=== PATIENT | female | born 1955 | race Caucasian/White ===

== ENCOUNTER 2024-06-11 22:29 | Emergency (ER) | payer MEDICARE ==
[2024-06-11 22:53] VITALS: RESP 18; TEMP 98.5
--- NOTE | 2024-06-11 22:57 | ERPHSYRPT ---
- History of Present Illness Time Seen by Provider: 06/11/24 22:56 Source: patient Exam Limitations: no limitations Patient Subjective Stated Complaint: pt states that she is positive for the flu 10 days ago and still does not feel good Triage Nursing Assessment: pt came into the er via ambulance; pt was transfer to cot per ems staff; pt is axo x3; pt is refusing to answer health history, allergies, medication; skin PDW; no respiratory distress present; clear lung sounds in all lobes; denies N/V/D; hypertensive Physician History: The patient, with diabetes and chronic kidney disease, presents with prolonged weakness and flu-like symptoms. They have been experiencing prolonged weakness and flu-like symptoms, initially diagnosed with Influenza A on June 03, 2024. They describe feeling weak for the past week with difficulty standing, describing themselves as 'shaky, weak, can't stand up'. They feel short of breath and have a cough, which was particularly bad today. No recent antibiotic use or breathing treatments. Additional symptoms include headache, inability to eat, and difficulty drinking. They have experienced falls on multiple occasions but do not recall specific details about these incidents. They have a history of diabetes and chronic kidney disease. No history of heart stents or open-heart surgery. They report a little chest pain but no swelling in their legs. Timing/Duration: day(s) (10), gradual onset, worse Cough Quality/Degree: mild, dry cough Possible Cause: occasional episodes Modifying Factors: Improves With: nothing. Worsens With: activity Associated Symptoms: cough, muscle aches, shortness of breath, wheezing, No fever, No chills Allergies/Adverse Reactions: bupivacaine Allergy (Verified 06/11/24 23:30) Iodinated Contrast Media Allergy (Verified 06/11/24 23:30) levofloxacin [From Levaquin] Allergy (Verified 06/11/24 23:30) shellfish derived Allergy (Verified 06/11/24 23:30) sitagliptin [From Januvia] Allergy (Verified 06/11/24 23:30) Sulfa (Sulfonamide Antibiotics) Allergy (Verified 06/11/24 23:30) sulfamethoxazole [From Bactrim] Allergy (Verified 06/11/24 23:30) trimethoprim [From Bactrim] Allergy (Verified 06/11/24 23:30) Home Medications: ALPRAZolam 0.25 MG [xanAX 0.25 MG] 0.25 mg PO BID PRN 06/11/24 [History] ARIPiprazole [Aripiprazole] 5 mg PO DAILY 06/11/24 [History] Aspirin EC 81 mg [Ecotrin 81 mg] 81 mg PO DAILY 06/11/24 [History] Fluoxetine HCl 40 mg PO DAILY 06/11/24 [History] Gabapentin [Neurontin ] 800 mg PO TID 06/11/24 [History] Hydrocodone/Acetaminophen [Hydrocodone-Acetamin 7.5-325] 1 each PO Q6HPRN PRN 06/11/24 [History] Insulin Glargine [Lantus Insulin] 60 unit SQ DAILY 06/11/24 [History] Insulin Lispro [Humalog] 30 unit SQ TID 06/11/24 [History] Levothyroxine Sodium 100 Mcg [Synthroid 100 Mcg] 100 mcg PO DAILY 06/11/24 [History] modafiniL [Modafinil] 200 mg PO DAILY 06/11/24 [History] Hx Tetanus, Diphtheria Vaccination/Date Given: No Hx Influenza Vaccination/Date Given: No Hx Pneumococcal Vaccination/Date Given: No Travel Risk - International Travel Have you traveled outside of the country in past 3 weeks: No - Emerging Infectious Disease Are you exhibiting symptoms associated with any current EIDs: No - Review of Systems All Other Systems: Reviewed and Negative - Past Medical History Pertinent Past Medical History: No (unable to obtain) - Past Surgical History Musculoskeletal: Amputation Other Surgical History: left great toe amputation, pain pump - Social History Smoking Status: Never smoker Exposure to second hand smoke: No Drug Use: none - Social Determinants of Health Will the patient participate in the screening: Declined to provide - Nursing Vital Signs Nursing Vital Signs: Initial Vital Signs Pulse Rate 85 06/11/24 22:33 Blood Pressure 209/97 06/11/24 22:33 O2 Sat by Pulse Oximetry 100 06/11/24 22:33 Pain Scale Pain Intensity 8 - Physical Exam General Appearance: no apparent distress, obese Neck Exam: supple, full range of motion Respiratory Exam: airway intact, diminished breath sounds, wheezing, No res piratory distress Cardiovascular Exam: regular rate/rhythm, normal heart sounds, capillary refill <2 sec, No edema Extremity Exam: normal inspection, normal range of motion Neurologic Exam: alert, oriented x 3, cooperative, interface designer II-XII nml as tested, sensation nml, No motor deficits Skin Exam: normal color, warm, dry, No rash SpO2 Interpretation: normal SpO2: 98 O2 Delivery: Room Air - Course Nursing assessment & vital signs reviewed: Yes - Radiology Exams Chest X-ray Interpretation: Interpreted by me, Infiltrates (bilateral ground glass) Ordered Tests: Active Orders 24 hr Category Date Time Status CHEST 1 VIEW (PORTABLE) Stat Exams 06/11/24 22:57 Taken CBC W DIFF Stat Lab 06/11/24 23:23 Completed CMP Stat Lab 06/11/24 23:23 Completed CULTURE,URINE Stat Lab 06/11/24 23:00 Received Lactic Acid Stat Lab 06/11/24 22:30 Completed MAGNESIUM Stat Lab 06/11/24 23:23 Completed NT PRO BNPII Stat Lab 06/11/24 23:23 Completed PROCALCITONIN Stat Lab 06/11/24 23:23 Completed UA W/RFX UR CULTURE Stat Lab 06/11/24 23:00 Completed Respiratory Therapy Assessment DAILY RT 06/11/24 23:36 Active Medication Summary Discontinued Medications Generic Name Dose Route Start Last Admin Trade Name Freq PRN Reason Stop Dose Admin Albuterol/Ipratropium 3 ml 06/11/24 22:56 06/11/24 23:36 Ipratropium/Albuterol Sulfate 3 Ml Ampul.Neb IH 06/11/24 22:57 3 ml STAT ONE Administration Albuterol/Ipratropium Confirm 06/11/24 23:21 Ipratropium/Albuterol Sulfate 3 Ml Ampul.Neb Administered 06/11/24 23:22 Dose 3 ml IH .STK-MED ONE Lab/Rad Data: Laboratory Result Diagrams 06/11/24 23:23 06/11/24 23:23 Laboratory Results 06/11/24 06/11/24 06/11/24 Range/Units 23:23 23:23 23:23 WBC (3.98-10.04) x10^3/uL RBC (3.93-5.22) x10^6/uL Hgb (11.2-15.7) g/dL Hct (34.1-44.9) % MCV (79.4-94.8) fL MCH (25.6-32.2) pg MCHC (32.2-35.5) g/dL RDW (11.7-14.4) % Plt Count (182-369) x10^3/uL MPV (9.4-12.3) fL Gran % (34.0-71.1) % Immature Gran % (Auto) (0.001-0.429) % Nucleat RBC Rel Count (0.00-0.2) % Eos # (Auto) (0.04-0.36) x10^3/uL Immature Gran # (Auto) (0.001-0.031) x10^3u/L Absolute Lymphs (auto) (1.18-3.74) x10^3/uL Absolute Monos (auto) (0.24-0.86) x10^3/uL Absolute Nucleated RBC (0.00-0.012) x10^3u/L Lymphocytes % (19.3-51.7) % Monocytes % (4.7-12.5) % Eosinophils % (0.7-5.8) % Basophils % (0.1-1.2) % Absolute Granulocytes (1.56-6.13) x10^3/uL Basophils # (0.01-0.08) x10^3/uL Sodium (135-145) mmol/L Potassium (3.5-5.1) mmol/L Chloride (98-107) mmol/L Carbon Dioxide (22-30) mmol/L Anion Gap (5-15) MEQ/L BUN (7-17) mg/dL Creatinine (0.52-1.04) mg/dL Estimated GFR ML/MIN Glucose (74-106) mg/dL Lactic Acid (0.4-2.0) Calcium (8.4-10.2) mg/dL Magnesium (1.6-2.3) mg/dL Total Bilirubin (0.2-1.3) mg/dL AST (14-36) U/L ALT (0-35) U/L Alkaline Phosphatase (38-126) U/L NT-Pro-B Natriuret Pep 637 (<300) pg/mL Serum Total Protein (6.3-8.2) g/dL Albumin (3.5-5.0) g/dL Procalcitonin 0.080 (0.030-0.080) ng/mL Urine Color (Yellow) Urine Appearance (Clear) Urine pH (4.6-8.0) Ur Specific [place] (1.005-1.030) Urine Protein (Negative) Urine Glucose (UA) (Negative) mg/dL Urine Ketones (Negative) Urine Blood (Negative) Urine Nitrite (Negative) Urine Bilirubin (Negative) Urine Urobilinogen (0.2) mg/dL Ur Leukocyte Esterase (Negative) U Hyaline Cast (Auto) (0-2) /LPF Urine Microscopic RBC (0-5) /HPF Urine Microscopic WBC (0-5) /HPF Ur Epithelial Cells (None Seen) /HPF Urine Bacteria (None Seen) /HPF Urine Culture Reflexed (NO) Influenza Type A Ag POSITIVE A (NEGATIVE) Influenza Type B Ag NEGATIVE (NEGATIVE) RSV (PCR) NEGATIVE (NEGATIVE) SARS-CoV-2 (PCR) NEGATIVE (NEGATIVE) 06/11/24 06/11/24 06/11/24 Range/Units 23:23 23:23 23:00 WBC 8.3 (3.98-10.04) x10^3/uL RBC 4.22 (3.93-5.22) x10^6/uL Hgb 12.1 (11.2-15.7) g/dL Hct 37.2 (34.1-44.9) % MCV 88.2 (79.4-94.8) fL MCH 28.7 (25.6-32.2) pg MCHC 32.5 (32.2-35.5) g/dL RDW 12.2 (11.7-14.4) % Plt Count 385 H (182-369) x10^3/uL MPV 9.2 L (9.4-12.3) fL Gran % 54.5 (34.0-71.1) % Immature Gran % (Auto) 1.3 H (0.001-0.429) % Nucleat RBC Rel Count 0.0 (0.00-0.2) % Eos # (Auto) 0.01 L (0.04-0.36) x10^3/uL Immature Gran # (Auto) 0.11 H (0.001-0.031) x10^3u/L Absolute Lymphs (auto) 3.21 (1.18-3.74) x10^3/uL Absolute Monos (auto) 0.43 (0.24-0.86) x10^3/uL Absolute Nucleated RBC 0.00 (0.00-0.012) x10^3u/L Lymphocytes % 38.5 (19.3-51.7) % Monocytes % 5.2 (4.7-12.5) % Eosinophils % 0.1 L (0.7-5.8) % Basophils % 0.4 (0.1-1.2) % Absolute Granulocytes 4.54 (1.56-6.13) x10^3/uL Basophils # 0.03 (0.01-0.08) x10^3/uL Sodium 134 L (135-145) mmol/L Potassium 4.7 (3.5-5.1) mmol/L Chloride 103 (98-107) mmol/L Carbon Dioxide 25 (22-30) mmol/L Anion Gap 10.3 (5-15) MEQ/L BUN 14 (7-17) mg/dL Creatinine 1.27 H (0.52-1.04) mg/dL Estimated GFR 46.1 ML/MIN Glucose 236 H (74-106) mg/dL Lactic Acid (0.4-2.0) Calcium 8.5 (8.4-10.2) mg/dL Magnesium 1.6 (1.6-2.3) mg/dL Total Bilirubin 0.80 (0.2-1.3) mg/dL AST 27 (14-36) U/L ALT 17 (0-35) U/L Alkaline Phosphatase 145 H (38-126) U/L NT-Pro-B Natriuret Pep (<300) pg/mL Serum Total Protein 6.4 (6.3-8.2) g/dL Albumin 3.3 L (3.5-5.0) g/dL Procalcitonin (0.030-0.080) ng/mL Urine Color Yellow (Yellow) Urine Appearance Clear (Clear) Urine pH 7.0 (4.6-8.0) Ur Specific [place] 1.015 (1.005-1.030) Urine Protein 300 A (Negative) Urine Glucose (UA) 250 A (Negative) mg/dL Urine Ketones Negative (Negative) Urine Blood Small A (Negative) Urine Nitrite Negative (Negative) Urine Bilirubin Negative (Negative) Urine Urobilinogen 0.2 (0.2) mg/dL Ur Leukocyte Esterase Negative (Negative) U Hyaline Cast (Auto) NONE SEEN (0-2) /LPF Urine Microscopic RBC 0-2 (0-5) /HPF Urine Microscopic WBC 11-20 A (0-5) /HPF Ur Epithelial Cells None Seen (None Seen) /HPF Urine Bacteria None Seen (None Seen) /HPF Urine Culture Reflexed YES (NO) Influenza Type A Ag (NEGATIVE) Influenza Type B Ag (NEGATIVE) RSV (PCR) (NEGATIVE) SARS-CoV-2 (PCR) (NEGATIVE) 06/11/24 Range/Units 22:30 WBC (3.98-10.04) x10^3/uL RBC (3.93-5.22) x10^6/uL Hgb (11.2-15.7) g/dL Hct (34.1-44.9) % MCV (79.4-94.8) fL MCH (25.6-32.2) pg MCHC (32.2-35.5) g/dL RDW (11.7-14.4) % Plt Count (182-369) x10^3/uL MPV (9.4-12.3) fL Gran % (34.0-71.1) % Immature Gran % (Auto) (0.001-0.429) % Nucleat RBC Rel Count (0.00-0.2) % Eos # (Auto) (0.04-0.36) x10^3/uL Immature Gran # (Auto) (0.001-0.031) x10^3u/L Absolute Lymphs (auto) (1.18-3.74) x10^3/uL Absolute Monos (auto) (0.24-0.86) x10^3/uL Absolute Nucleated RBC (0.00-0.012) x10^3u/L Lymphocytes % (19.3-51.7) % Monocytes % (4.7-12.5) % Eosinophils % (0.7-5.8) % Basophils % (0.1-1.2) % Absolute Granulocytes (1.56-6.13) x10^3/uL Basophils # (0.01-0.08) x10^3/uL Sodium (135-145) mmol/L Potassium (3.5-5.1) mmol/L Chloride (98-107) mmol/L Carbon Dioxide (22-30) mmol/L Anion Gap (5-15) MEQ/L BUN (7-17) mg/dL Creatinine (0.52-1.04) mg/dL Estimated GFR ML/MIN Glucose (74-106) mg/dL Lactic Acid 1.3 (0.4-2.0) Calcium (8.4-10.2) mg/dL Magnesium (1.6-2.3) mg/dL Total Bilirubin (0.2-1.3) mg/dL AST (14-36) U/L ALT (0-35) U/L Alkaline Phosphatase (38-126) U/L NT-Pro-B Natriuret Pep (<300) pg/mL Serum Total Protein (6.3-8.2) g/dL Albumin (3.5-5.0) g/dL Procalcitonin (0.030-0.080) ng/mL Urine Color (Yellow) Urine Appearance (Clear) Urine pH (4.6-8.0) Ur Specific [place] (1.005-1.030) Urine Protein (Negative) Urine Glucose (UA) (Negative) mg/dL Urine Ketones (Negative) Urine Blood (Negative) Urine Nitrite (Negative) Urine Bilirubin (Negative) Urine Urobilinogen (0.2) mg/dL Ur Leukocyte Esterase (Negative) U Hyaline Cast (Auto) (0-2) /LPF Urine Microscopic RBC (0-5) /HPF Urine Microscopic WBC (0-5) /HPF Ur Epithelial Cells (None Seen) /HPF Urine Bacteria (None Seen) /HPF Urine Culture Reflexed (NO) Influenza Type A Ag (NEGATIVE) Influenza Type B Ag (NEGATIVE) RSV (PCR) (NEGATIVE) SARS-CoV-2 (PCR) (NEGATIVE) - Progress Progress: improved Air Movement: fair Progress Note: Influenza A Diagnosed on June 03 with symptoms of weakness, headache, anorexia, and inability to stand. Reports multiple falls, indicating significant weakness and possible dehydration or electrolyte imbalance. No antibiotics taken. Persistent condition contributing to overall malaise. Oxygen levels are good, but reports feeling short of breath today. - Order lab work to assess for dehydration and electrolyte imbalance - Administer breathing treatment - CXR ordered Generalized Weakness Reports generalized weakness, shakiness, and inability to stand. Likely multifactorial, related to recent influenza infection, possible dehydration, and chronic conditions. Significant change from baseline function, as they felt ve ry strong prior to this illness. - Order lab work to assess for underlying causes of weakness 06/12/24 01:01 XR showed b/l ground glass opacities, start Azithro and Prednisone. Labs unremarkable. Blood Culture(s) Obtained: No Antibiotics given: Yes Counseled pt/family regarding: lab results, diagnosis, need for follow-up, rad results Medical Desision Making - Diagnostic Testing Diagnostic test were ordered, analyzed, and reviewed by me: Yes Radiological Interpretation: Interpreted by me - Risk of complications The pt has a mod risk of morbidity or mortality based on: Need for prescription drug management - Departure Departure Disposition: Home Clinical Impression: Weakness, Influenza A, Ground glass opacity present on imaging of lung, Atypical pneumonia Condition: Good Critical Care Time: No Referrals: JODY BARAJAS DO [Primary Care Provider] - Follow up/PCP as directed Instructions: Pneumonia, Adult (DC) Prescriptions: Azithromycin 250 mg PO DAILY 4 Days #4 tablet predniSONE [Prednisone] 50 mg PO DAILY 4 Days #4 tablet
[2024-06-11] MEDS ORDERED: DUONEB 0.5-3 MG/3 ml Neb IH ONE (23:21)
[2024-06-11 23:26] LABS: Absolute Neutrophil Ct (ANC) 4.54 x10^3/uL (1.56-6.13); BASOPHIL % 0.4 % (0.1-1.2); Basophil (Absolute #) 0.03 x10^3/uL (0.01-0.08); Eosinophil % 0.1 % (0.7-5.8); Eosinophil (Absolute #) 0.01 x10^3/uL (0.04-0.36); Hematocrit 37.2 % (34.1-44.9); Hemoglobin 12.1 g/dL (11.2-15.7); IMMATURE GRAN # 0.11 x10^3u/L (0.001-0.031); IMMATURE GRAN % 1.3 % (0.001-0.429); Lymphocyte (Absolute #) 3.21 x10^3/uL (1.18-3.74); Lymphocytes % 38.5 % (19.3-51.7); Mean Cell Volume 88.2 fL (79.4-94.8); Mean Corpuscular Hemoglobin 28.7 pg (25.6-32.2); Mean Corpuscular Hgb Concent. 32.5 g/dL (32.2-35.5); Mean Platelet Volume 9.2 fL (9.4-12.3); Monocyte (Absolute #) 0.43 x10^3/uL (0.24-0.86); Monocytes % 5.2 % (4.7-12.5); Neutrophil % 54.5 % (34.0-71.1); Platelet Count 385 x10^3/uL (182-369); Red Blood Count 4.22 x10^6/uL (3.93-5.22); Red Cell Distribution Width 12.2 % (11.7-14.4); White Blood Count 8.3 x10^3/uL (3.98-10.04)
[2024-06-11] MEDS: DUONEB 0.5-3 MG/3 ml Neb IH ONE (23:36)
[2024-06-11 23:37] LABS: Appearance Clear (Clear); Bacteria None Seen /HPF (None Seen); Bilirubin Negative (Negative); Blood Small (Negative); Epithelial Cells None Seen /HPF (None Seen); Glucose, Urine 250 mg/dL (Negative); Hyaline Casts NONE SEEN /LPF (0-2); Ketones Negative (Negative); Leukocyte Esterase Negative (Negative); Nitrite Negative (Negative); Protein,Urine Dip 300 (Negative); RBC 0-2 /HPF (0-5); Specific Gravity 1.015 (1.005-1.030); Urobilinogen 0.2 mg/dL (0.2)
[2024-06-11 23:38] LABS: ALBUMIN 3.3 g/dL (3.5-5.0); ANION GAP 10.3 MEQ/L (5-15); BILIRUBIN,TOTAL 0.8 mg/dL (0.2-1.3); Calcium 8.5 mg/dL (8.4-10.2); Creatinine 1 1.27 mg/dL (0.52-1.04); EST GLOMERULAR FILTRATION RATE 46.1 ML/MIN; MAGNESIUM 1.6 mg/dL (1.6-2.3); Potassium 4.7 mmol/L (3.5-5.1); Total Protein 6.4 g/dL (6.3-8.2)
[2024-06-12 00:03] LABS: INFLUENZA B NEGATIVE (NEGATIVE); RESPIRATORY SYNCTIAL VIRUS NEGATIVE (NEGATIVE); SARS-CoV-2 Xpert Express NEGATIVE (NEGATIVE)
[2024-06-12 00:09] LABS: INFLUENZA A POSITIVE (NEGATIVE)
[2024-06-12] MEDS ORDERED: Zithromax 250 MG TABLET ONE (01:13)
[2024-06-12] MEDS: Zithromax 250 MG TABLET PO ONE (01:14)
[2024-06-12] MEDS: DELTASONE 20 MG PO ONE (01:14)
[2024-06-12] MEDS ORDERED: DELTASONE 20 MG ONE (01:14)
[2024-06-12] MEDS ORDERED: HUMALOG ONE (01:37)
[2024-06-12] MEDS: HUMALOG SQ ONE (01:38)
[2024-06-12 01:57] VITALS: BP 150/94; PULSE 78; O2SAT 99
--- NOTE | 2024-06-12 08:42 | XRAY ---
Indication: Short of breath. Comparison: None Portable chest demonstrates blunting left costophrenic angle suggesting small pleural effusion/thickening. Remaining heart and lungs unremarkable. Bony thorax intact with osteopenia and mild/moderate degenerative changes.
== END 2024-06-12 01:54 | disposition home or self-care (01) ==
LOC: ED 22:29
DX: J10.00 Influenza due to other identified influenza virus with unspecified type of pneumonia (principal); R53.1 Weakness; R91.8 Other nonspecific abnormal finding of lung field; R05.1 Acute cough; R51.9 Headache, unspecified; E11.22 Type 2 diabetes mellitus with diabetic chronic kidney disease; Z79.52 Long term (current) use of systemic steroids; Z79.891 Long term (current) use of opiate analgesic; Z79.4 Long term (current) use of insulin; Z79.899 Other long term (current) drug therapy
CPT/HCPCS: 0241U; 36415; 71045; 80053; 81001; 83605; 83735; 83880; 84145; 85025; 87086; 94640; 99284; 99283; J1817; A9270-GY

== ENCOUNTER 2024-09-08 21:06 | Emergency (ER) | payer MEDICARE, BC ==
[2024-09-08 21:31] VITALS: TEMP 97.8
[2024-09-08 22:06] LABS: Absolute Neutrophil Ct (ANC) 6.64 x10^3/uL (1.56-6.13); BASOPHIL % 0.1 % (0.1-1.2); Basophil (Absolute #) 0.01 x10^3/uL (0.01-0.08); Eosinophil % 0.3 % (0.7-5.8); Eosinophil (Absolute #) 0.03 x10^3/uL (0.04-0.36); Hematocrit 33.2 % (34.1-44.9); Hemoglobin 11.7 g/dL (11.2-15.7); IMMATURE GRAN # 0.06 x10^3u/L (0.001-0.031); IMMATURE GRAN % 0.6 % (0.001-0.429); Lymphocyte (Absolute #) 2.45 x10^3/uL (1.18-3.74); Lymphocytes % 25.6 % (19.3-51.7); Mean Cell Volume 82.6 fL (79.4-94.8); Mean Corpuscular Hemoglobin 29.1 pg (25.6-32.2); Mean Corpuscular Hgb Concent. 35.2 g/dL (32.2-35.5); Mean Platelet Volume 10.1 fL (9.4-12.3); Monocyte (Absolute #) 0.37 x10^3/uL (0.24-0.86); Monocytes % 3.9 % (4.7-12.5); Neutrophil % 69.5 % (34.0-71.1); Platelet Count 313 x10^3/uL (182-369); Red Blood Count 4.02 x10^6/uL (3.93-5.22); Red Cell Distribution Width 12.7 % (11.7-14.4); White Blood Count 9.6 x10^3/uL (3.98-10.04)
[2024-09-08 22:11] LABS: ALBUMIN 3.6 g/dL (3.5-5.0); ANION GAP 16.7 MEQ/L (5-15); BILIRUBIN,TOTAL 0.9 mg/dL (0.2-1.3); Calcium 9.8 mg/dL (8.4-10.2); Creatinine 1 1.48 mg/dL (0.52-1.04); EST GLOMERULAR FILTRATION RATE 38.3 ML/MIN; MAGNESIUM 1.5 mg/dL (1.6-2.3); Potassium 4.4 mmol/L (3.5-5.1); Total Protein 6.7 g/dL (6.3-8.2)
--- NOTE | 2024-09-08 22:26 | ERPHSYRPT ---
- History of Present Illness Source: patient Exam Limitations: no limitations Patient Subjective Stated Complaint: patient states she fell at home has rib pain. says she was seen at [facility] last night they did x rays and discharged her stated she had high blood sugaar. Triage Nursing Assessment: patient is alert nad oreintedx3, able to ambualte with help, patients pupils are perrla 3, skin warm dry and intact. patient has noted edmea bilateral lower extremities. lung sounds clear. patient complaining of pain in ribs. Physician History: According to the family the patient has been acting a little off lately. They said that she is confused and agitated. They are concerned that she is taking too much of her [place]. She has not been monitoring her blood sugar either. It was around 500 when she was here.In taking her history she seemed a little bit scattered. She does not have any focal neurological deficits.She said she just does not feel right. Her notices that she has been agitated.She is alert and conversant butAccording to the son and daughter she is acting peculiarly She fell yesterday and was seen in another ER. She had a rib contusion. We were able to look at those notes. Allergies/Adverse Reactions: bupivacaine Allergy (Verified 06/11/24 23:30) Iodinated Contrast Media Allergy (Verified 06/11/24 23:30) levofloxacin [From Levaquin] Allergy (Verified 06/11/24 23:30) shellfish derived Allergy (Verified 06/11/24 23:30) sitagliptin [From Januvia] Allergy (Verified 06/11/24 23:30) Sulfa (Sulfonamide Antibiotics) Allergy (Verified 06/11/24 23:30) sulfamethoxazole [From Bactrim] Allergy (Verified 06/11/24 23:30) trimethoprim [From Bactrim] Allergy (Verified 06/11/24 23:30) Home Medications: ALPRAZolam 0.25 MG [xanAX 0.25 MG] 0.25 mg PO BID PRN 06/11/24 [History] ARIPiprazole [Aripiprazole] 5 mg PO DAILY 06/11/24 [History] Aspirin EC 81 mg [Ecotrin 81 mg] 81 mg PO DAILY 06/11/24 [History] Fluoxetine HCl 40 mg PO DAILY 06/11/24 [History] Gabapentin [Neurontin ] 800 mg PO TID 06/11/24 [History] Hydrocodone/Acetaminophen [Hydrocodone-Acetamin 7.5-325] 1 each PO Q6HPRN PRN 06/11/24 [History] Insulin Glargine [Lantus Insulin] 60 unit SQ DAILY 06/11/24 [History] Insulin Lispro [Humalog] 30 unit SQ TID 06/11/24 [History] Levothyroxine Sodium 100 Mcg [Synthroid 100 Mcg] 100 mcg PO DAILY 06/11/24 [History] modafiniL [Modafinil] 200 mg PO DAILY 06/11/24 [History] Hx Tetanus, Diphtheria Vaccination/Date Given: No Hx Influenza Vaccination/Date Given: No Hx Pneumococcal Vaccination/Date Given: No Immunizations Up to Date: Yes Travel Risk - International Travel Have you traveled outside of the country in past 3 weeks: No - Emerging Infectious Disease Are you exhibiting symptoms associated with any current EIDs: No - Review of Systems Eyes: No Symptoms Ears, Nose, & Throat: No Symptoms Respiratory: No Symptoms Cardiac: No Symptoms Neurological: Other (See HPI) Psychological: Anxiety Endocrine: No Symptoms All Other Systems: Reviewed and Negative - Past Medical History Pertinent Past Medical History: No (unable to obtain) Neurological History: Peripheral Neuropathy Cardiac History: Hypertension Endocrine Medical History: Diabetes Type II Musculoskeletal History: Fibromyalgia History: Renal Disease Psycho-Social History: No Pertinent History - Past Surgical History Past Surgical History: Yes Gastrointestinal: Appendectomy, Cholecystectomy Musculoskeletal: Amputation Female Surgical History: Hysterectomy Other Surgical History: left great toe amputation, pain pump - Social History Smoking Status: Never smoker Exposure to second hand smoke: No Drug Use: none - Social Determinants of Health Will the patient participate in the screening: Declined to provide - Nursing Vital Signs Nursing Vital Signs: Initial Vital Signs Temperature 97.8 F 09/08/24 21:06 Pulse Rate 96 H 09/08/24 21:06 Respiratory Rate 20 09/08/24 21:06 Blood Pressure 222/95 09/08/24 21:06 O2 Sat by Pulse Oximetry 98 09/08/24 21:06 Pain Scale Pain Intensity 5 - Physical Exam General Appearance: no apparent distress, other (Patient appeared fidgety and agitated. Almost look like she was either had a toxic ingestion or electrolyte/Metabolic abnormality) Eye Exam: PERRL/EOMI Ears, Nose, Throat Exam: normal ENT inspection Neck Exam: normal inspection Respiratory Exam: normal breath sounds, lungs clear, No chest tenderness Cardiovascular Exam: regular rate/rhythm, normal heart sounds Gastrointestinal/Abdomen Exam: soft, normal bowel sounds Back Exam: normal inspection Neurologic Exam: alert Skin Exam: normal color, warm, dry SpO2: 98 - Course Nursing assessment & vital signs reviewed: Yes Ordered Tests: Active Orders 24 hr Category Date Time Status HEAD WITHOUT CONTRAST [CT] Stat Exams 09/08/24 22:01 Completed CBC W DIFF Stat Lab 09/08/24 22:01 Completed CMP Stat Lab 09/08/24 22:01 Completed CULTURE,URINE Stat Lab 09/08/24 22:01 Received Lactic Acid Stat Lab 09/08/24 22:10 Completed MAG [MAGNESIUM] Stat Lab 09/08/24 22:01 Completed POCT GLUCOSE Stat Lab 09/08/24 21:28 Completed POCT GLUCOSE Stat Lab 09/08/24 23:36 Completed POCT GLUCOSE Stat Lab 09/09/24 00:52 Completed POCT GLUCOSE Stat Lab 09/09/24 01:52 Received UA W/RFX UR CULTURE Stat Lab 09/08/24 22:01 Completed Medication Summary Discontinued Medications Generic Name Dose Route Start Last Admin Trade Name Fabiola PRN Reason Stop Dose Admin Fentanyl Citrate 50 mcg 09/08/24 22:49 09/08/24 23:29 Fentanyl Citrate 100 Mcg/2 Ml* Vial IV 09/08/24 22:50 50 mcg STAT ONE Administration Fentanyl Citrate Confirm 09/08/24 23:16 Fentanyl Citrate 100 Mcg/2 Ml* Vial Administered 09/08/24 23:17 Dose 100 mcg .ROUTE .STK-MED ONE Sodium Chloride 1,000 mls @ 999 mls/hr 09/08/24 22:21 09/09/24 00:38 Sodium Chloride 0.9% 1000 Ml IV 09/08/24 23:21 Infused .Q1H1M STA Infusion Sodium Chloride Confirm 09/08/24 22:27 Sodium Chloride 0.9% 1000 Ml Administered 09/08/24 22:28 Dose 1,000 mls @ ud .ROUTE .STK-MED ONE Insulin Human Regular 20 unit 09/08/24 22:21 09/08/24 22:30 Insulin Regular, Human 1 Unit IV 09/08/24 22:22 20 unit STAT ONE Administration Insulin Human Regular Confirm 09/08/24 22:27 Insulin Regular, Human 1 Unit Administered 09/08/24 22:28 Dose 20 unit .ROUTE .STK-MED ONE Insulin Human Regular 10 unit 09/09/24 00:48 Insulin Regular, Human 1 Unit IV 09/09/24 00:49 STAT ONE Insulin Human Regular Confirm 09/09/24 01:14 Insulin Regular, Human 1 Unit Administered 09/09/24 01:15 Dose 10 unit .ROUTE .STK-MED ONE Labetalol HCl 20 mg 09/08/24 22:23 09/08/24 22:34 Labetalol Hcl 20 Mg/4 Ml Disp.Syringe IV 09/08/24 22:24 Not Given STAT ONE Labetalol HCl Confirm 09/08/24 22:32 Labetalol Hcl 20 Mg/4 Ml Disp.Syringe Administered 09/08/24 22:33 Dose 20 mg IV .STK-MED ONE Lab/Rad Data: Laboratory Result Diagrams 09/08/24 22:01 09/08/24 22:01 Laboratory Results 09/09/24 09/08/24 09/08/24 Range/Units 00:52 23:36 22:10 WBC (3.98-10.04) x10^3/uL RBC (3.93-5.22) x10^6/uL Hgb (11.2-15.7) g/dL Hct (34.1-44.9) % MCV (79.4-94.8) fL MCH (25.6-32.2) pg MCHC (32.2-35.5) g/dL RDW (11.7-14.4) % Plt Count (182-369) x10^3/uL MPV (9.4-12.3) fL Gran % (34.0-71.1) % Immature Gran % (Auto) (0.001-0.429) % Nucleat RBC Rel Count (0.00-0.2) % Eos # (Auto) (0.04-0.36) x10^3/uL Immature Gran # (Auto) (0.001-0.031) x10^3u/L Absolute Lymphs (auto) (1.18-3.74) x10^3/uL Absolute Monos (auto) (0.24-0.86) x10^3/uL Absolute Nucleated RBC (0.00-0.012) x10^3u/L Lymphocytes % (19.3-51.7) % Monocytes % (4.7-12.5) % Eosinophils % (0.7-5.8) % Basophils % (0.1-1.2) % Absolute Granulocytes (1.56-6.13) x10^3/uL Basophils # (0.01-0.08) x10^3/uL Sodium (135-145) mmol/L Potassium (3.5-5.1) mmol/L Chloride (98-107) mmol/L Carbon Dioxide (22-30) mmol/L Anion Gap (5-15) MEQ/L BUN (7-17) mg/dL Creatinine (0.52-1.04) mg/dL Estimated GFR ML/MIN Glucose (74-106) mg/dL POC Glucometer 370 H 441 H (74 to 106) mg/dL Lactic Acid 1.4 (0.4-2.0) Calcium (8.4-10.2) mg/dL Magnesium (1.6-2.3) mg/dL Total Bilirubin (0.2-1.3) mg/dL AST (14-36) U/L ALT (0-35) U/L Alkaline Phosphatase (38-126) U/L Serum Total Protein (6.3-8.2) g/dL Albumin (3.5-5.0) g/dL Urine Color (Yellow) Urine Appearance (Clear) Urine pH (4.6-8.0) Ur Specific [place] (1.005-1.030) Urine Protein (Negative) Urine Glucose (UA) (Negative) mg/dL Urine Ketones (Negative) Urine Blood (Negative) Urine Nitrite (Negative) Urine Bilirubin (Negative) Urine Urobilinogen (0.2) mg/dL Ur Leukocyte Esterase (Negative) U Hyaline Cast (Auto) (0-2) /LPF Urine Microscopic RBC (0-5) /HPF Urine Microscopic WBC (0-5) /HPF Ur Epithelial Cells (None Seen) /HPF Urine Bacteria (None Seen) /HPF Urine Culture Reflexed (NO) 09/08/24 09/08/24 09/08/24 Range/Units 22:01 22:01 22:01 WBC 9.6 (3.98-10.04) x10^3/uL RBC 4.02 (3.93-5.22) x10^6/uL Hgb 11.7 (11.2-15.7) g/dL Hct 33.2 L (34.1-44.9) % MCV 82.6 (79.4-94.8) fL MCH 29.1 (25.6-32.2) pg MCHC 35.2 (32.2-35.5) g/dL RDW 12.7 (11.7-14.4) % Plt Count 313 (182-369) x10^3/uL MPV 10.1 (9.4-12.3) fL Gran % 69.5 (34.0-71.1) % Immature Gran % (Auto) 0.6 H (0.001-0.429) % Nucleat RBC Rel Count 0.0 (0.00-0.2) % Eos # (Auto) 0.03 L (0.04-0.36) x10^3/uL Immature Gran # (Auto) 0.06 H (0.001-0.031) x10^3u/L Absolute Lymphs (auto) 2.45 (1.18-3.74) x10^3/uL Absolute Monos (auto) 0.37 (0.24-0.86) x10^3/uL Absolute Nucleated RBC 0.00 (0.00-0.012) x10^3u/L Lymphocytes % 25.6 (19.3-51.7) % Monocytes % 3.9 L (4.7-12.5) % Eosinophils % 0.3 L (0.7-5.8) % Basophils % 0.1 (0.1-1.2) % Absolute Granulocytes 6.64 H (1.56-6.13) x10^3/uL Basophils # 0.01 (0.01-0.08) x10^3/uL Sodium 130 L (135-145) mmol/L Potassium 4.4 (3.5-5.1) mmol/L Chloride 97 L (98-107) mmol/L Carbon Dioxide 21 L (22-30) mmol/L Anion Gap 16.7 H (5-15) MEQ/L BUN 22 H (7-17) mg/dL Creatinine 1.48 H (0.52-1.04) mg/dL Estimated GFR 38.3 ML/MIN Glucose 520 H* (74-106) mg/dL POC Glucometer (74 to 106) mg/dL Lactic Acid (0.4-2.0) Calcium 9.8 (8.4-10.2) mg/dL Magnesium 1.5 L (1.6-2.3) mg/dL Total Bilirubin 0.90 (0.2-1.3) mg/dL AST 28 (14-36) U/L ALT 18 (0-35) U/L Alkaline Phosphatase 217 H (38-126) U/L Serum Total Protein 6.7 (6.3-8.2) g/dL Albumin 3.6 (3.5-5.0) g/dL Urine Color Yellow (Yellow) Urine Appearance Clear (Clear) Urine pH 6.0 (4.6-8.0) Ur Specific [place] 1.025 (1.005-1.030) Urine Protein >=1000 A (Negative) Urine Glucose (UA) >=1000 A (Negative) mg/dL Urine Ketones Trace A (Negative) Urine Blood Moderate A (Negative) Urine Nitrite Negative (Negative) Urine Bilirubin Negative (Negative) Urine Urobilinogen 0.2 (0.2) mg/dL Ur Leukocyte Esterase Negative (Negative) U Hyaline Cast (Auto) NONE SEEN (0-2) /LPF Urine Microscopic RBC 11-20 A (0-5) /HPF Urine Microscopic WBC 0-2 (0-5) /HPF Ur Epithelial Cells None Seen (None Seen) /HPF Urine Bacteria None Seen (None Seen) /HPF Urine Culture Reflexed YES (NO) 09/08/24 Range/Units 21:28 WBC (3.98-10.04) x10^3/uL RBC (3.93-5.22) x10^6/uL Hgb (11.2-15.7) g/dL Hct (34.1-44.9) % MCV (79.4-94.8) fL MCH (25.6-32.2) pg MCHC (32.2-35.5) g/dL RDW (11.7-14.4) % Plt Count (182-369) x10^3/uL MPV (9.4-12.3) fL Gran % (34.0-71.1) % Immature Gran % (Auto) (0.001-0.429) % Nucleat RBC Rel Count (0.00-0.2) % Eos # (Auto) (0.04-0.36) x10^3/uL Immature Gran # (Auto) (0.001-0.031) x10^3u/L Absolute Lymphs (auto) (1.18-3.74) x10^3/uL Absolute Monos (auto) (0.24-0.86) x10^3/uL Absolute Nucleated RBC (0.00-0.012) x10^3u/L Lymphocytes % (19.3-51.7) % Monocytes % (4.7-12.5) % Eosinophils % (0.7-5.8) % Basophils % (0.1-1.2) % Absolute Granulocytes (1.56-6.13) x10^3/uL Basophils # (0.01-0.08) x10^3/uL Sodium (135-145) mmol/L Potassium (3.5-5.1) mmol/L Chloride (98-107) mmol/L Carbon Dioxide (22-30) mmol/L Anion Gap (5-15) MEQ/L BUN (7-17) mg/dL Creatinine (0.52-1.04) mg/dL Estimated GFR ML/MIN Glucose (74-106) mg/dL POC Glucometer 452 H (74 to 106) mg/dL Lactic Acid (0.4-2.0) Calcium (8.4-10.2) mg/dL Magnesium (1.6-2.3) mg/dL Total Bilirubin (0.2-1.3) mg/dL AST (14-36) U/L ALT (0-35) U/L Alkaline Phosphatase (38-126) U/L Serum Total Protein (6.3-8.2) g/dL Albumin (3.5-5.0) g/dL Urine Color (Yellow) Urine Appearance (Clear) Urine pH (4.6-8.0) Ur Specific [place] (1.005-1.030) Urine Protein (Negative) Urine Glucose (UA) (Negative) mg/dL Urine Ketones (Negative) Urine Blood (Negative) Urine Nitrite (Negative) Urine Bilirubin (Negative) Urine Urobilinogen (0.2) mg/dL Ur Leukocyte Esterase (Negative) U Hyaline Cast (Auto) (0-2) /LPF Urine Microscopic RBC (0-5) /HPF Urine Microscopic WBC (0-5) /HPF Ur Epithelial Cells (None Seen) /HPF Urine Bacteria (None Seen) /HPF Urine Culture Reflexed (NO) - Progress Progress: improved Progress Note: I took the family in private they think she is taking too much of her [place] and that could be the case. I also think her elevated sugar probably contributed to this behavior. I gave her a liter of fluids and some insulin. Her sugar went down from 502-80. She was stable. She said that she will monitor her sugars at home and take appropriate dosages of insulin. I went to leave it to the family to monitor her prescription [place] usage.At this time her symptoms have improved and I am going to let her go home. 09/09/24 01:58 Medical Desision Making - Independent Historian Additional History obtained from: Spouse, Child - Diagnostic Testing Diagnostic test were ordered, analyzed, and reviewed by me: Yes - Risk of complications Low Risk: Low risk of morbidity from additional dx testing or treatment - Departure Departure Disposition: Home Clinical Impression: Mental status change resolved Condition: Stable Critical Care Time: No Referrals: JODY BARAJAS DO [Primary Care Provider, INTERNAL MEDICINE] - Follow up/PCP as directed Instructions: Preventing falls in adults
[2024-09-08] MEDS ORDERED: HUMULIN R ONE (22:27)
[2024-09-08] MEDS ORDERED: Sodium Chloride 0.9% 1000 ML 1,000 ML ONE (22:27)
[2024-09-08] MEDS: Sodium Chloride 0.9% 1000 ML 1,000 ML IV STA (22:29)
[2024-09-08] MEDS: HUMULIN R IV ONE (22:30)
[2024-09-08] MEDS: TRANDATE 20 MG/4 ML SYRINGE IV ONE (22:32)
[2024-09-08] MEDS ORDERED: TRANDATE 20 MG/4 ML SYRINGE IV ONE (22:32)
[2024-09-08] MEDS ORDERED: SUBLIMAZE 100 MCG/2 ML ONE (23:16)
[2024-09-08] MEDS: SUBLIMAZE 100 MCG/2 ML IV ONE (23:29)
--- NOTE | 2024-09-08 23:31 | XRAY ---
CLINICAL HISTORY: confusion COMPARISON: None. TECHNIQUE: Axial non-contrast CT scan of the brain was performed from the skull base to the high parietal region. One of the following dose reduction techniques were utilized for this exam: Automated exposure control, adjustment of the mA and/or kV according to patient size, use of iterative reconstruction. FINDINGS: Brain Parenchyma: Normal attenuation of the cerebral hemispheres, cerebellum, and brainstem. No evidence of acute infarct, hemorrhage, or mass effect. No abnormal areas of hypo- or hyperattenuation. Ventricular System: The ventricular system, cortical sulci, and basal cisterns are prominent and consistent with senile changes. Subarachnoid Spaces: Normal sulci and cisterns. No evidence of subarachnoid hemorrhage or extra-axial fluid collections. Cerebellum and Brainstem: No masses, lesions, or areas of abnormal density. Orbits: Normal appearance of the globes, optic nerves, and extraocular muscles. No evidence of orbital masses or abnormal density. Sinuses: Clear paranasal sinuses. No evidence of sinusitis or mucosal thickening. Mastoid Air Cells: Clear mastoid air cells. No evidence of mastoiditis. Skull: Normal skull morphology. IMPRESSION: 1. No intracranial hematomas or parenchymal territorial hypodense areas suggest an acute ischemic insult. 2. Early changes of stroke may not be detected on a CT scan. If there is a strong clinical suspicion of stroke, then an MRI with diffusion-weighted imaging is suggested. 3. Senile changes. Electronically Signed by: Marlene Feng MD. (09/08/2024 23:28:37 EDT)
[2024-09-08 23:39] VITALS: BP 184/107; PULSE 88; RESP 18
[2024-09-08 23:49] LABS: Appearance Clear (Clear); Bacteria None Seen /HPF (None Seen); Bilirubin Negative (Negative); Blood Moderate (Negative); Epithelial Cells None Seen /HPF (None Seen); Glucose, Urine >=1000 mg/dL (Negative); Hyaline Casts NONE SEEN /LPF (0-2); Ketones Trace (Negative); Leukocyte Esterase Negative (Negative); Nitrite Negative (Negative); Protein,Urine Dip >=1000 (Negative); Specific Gravity 1.025 (1.005-1.030); Urobilinogen 0.2 mg/dL (0.2); WBC 0-2 /HPF (0-5)
[2024-09-09 00:48] VITALS: O2SAT 98
[2024-09-09] MEDS: HUMULIN R IV ONE (01:00)
[2024-09-09] MEDS ORDERED: HUMULIN R ONE (01:14)
== END 2024-09-09 02:21 | disposition home or self-care (01) ==
LOC: ED 21:06
DX: R41.0 Disorientation, unspecified (principal); E11.42 Type 2 diabetes mellitus with diabetic polyneuropathy; I10 Essential (primary) hypertension; G62.9 Polyneuropathy, unspecified; Z79.891 Long term (current) use of opiate analgesic; Z79.4 Long term (current) use of insulin; Z79.899 Other long term (current) drug therapy
CPT/HCPCS: 36415; 70450; 80053; 81001; 82947; 83605; 83735; 85025; 87086; 96361; 96374; 96375; 96376; 99284; 99285; J1815; J3010